=== PATIENT | male | born 1995 | race Caucasian/White ===

== ENCOUNTER 2022-04-24 18:48 | Emergency (ER) | payer OTHER, SELFPAY ==
[2022-04-24 18:49] VITALS: BP 146/95; PULSE 112; RESP 16; TEMP 37.4; O2SAT 100; BMI 25.8
--- NOTE | 2022-04-24 20:30 | US_ITS ---
EXAM: US SCROTUM CLINICAL INDICATION: pain and swelling lt testicle TECHNIQUE: Realtime ultrasound of the testicles was performed with grayscale and Color Doppler analysis. This report was created using [employer] report Flu[employer] technology. COMPARISON: None. FINDINGS: RIGHT TESTICLE: Right testicle measures 3.0 x 4.5 x 1.9 cm. Normal in size and echotexture. No focal lesion. Normal blood flow is present. LEFT TESTICLE: The left testicle measures 3.1 x 4.7 x 2.5 cm. There is mild increased blood flow in the left testicle compared to the right. There is mild scrotal wall thickening on the left. Normal in size and echotexture. No focal lesion. Normal blood flow is present. EPIDIDYMIDES: The right epididymal head measures 1.1 x 0.9 x 0.8 cm. There is a 2 x 3 mm right epididymal cyst. The left epididymal head measures 1.3 x 1.0 x 0.9 cm. There is a 3 x 3 mm left epididymal cyst. Normal color Doppler flow pattern in the epididymis. SCROTUM: There is a moderate left-sided hydrocele. No varicocele. US/Testicular with Arterial Flow IMPRESSION: Mild increased blood flow in the left testicle compared to the right which may represent orchitis. There is a left-sided hydrocele present. There is no evidence of torsion. Electronically Signed: Timbo Leonardo MD at 22:05 EDT ,
--- NOTE | 2022-04-24 20:35 | EDS_ITS ---
HPI History of Present Illness Chief Complaint: Male Pain/Injury Informant: patient Narrative Narrative: Patient woke up with some left testicular swelling yesterday. Its continued. It is a little bit sore but not notably painful. No nausea vomiting. No change in urination or discharge. No trauma or injury. No fevers chills. No joint pains. No rashes. Nothing really makes better. Pressing on the area does make it a little worse. PFSH PFSH Home Medications doxycycline monohydrate 100 mg capsule 100 mg PO BID #20 caps 04/24/22 [Rx Last Taken Unknown] Allergy/AdvReac Type Severity Reaction Status Date / Time No Known Allergies Allergy Verified 04/24/22 18:50 Social History Smoking Status: Never smoker ROS ROS ED Constitutional Constitutional ED: Denies chills or fever(s) Respiratory/Chest Respiratory/Chest: Denies cough or dyspnea Gastrointestinal Gastrointestinal: Denies abdominal pain, constipation, diarrhea, melena, nausea or vomiting Genitourinary Genitourinary ED: Reports other Details: See history of present illness peer ; Denies dysuria, hematuria or urinary frequency Musculoskeletal Musculoskeletal: Denies arthralgias, back pain or myalgias Integumentary Denies rash Neurologic Neurologic: Denies paresthesias or weakness Endocrine Endocrinology: Denies polyuria Hematologic/Lymphatic Hematologic/Lymphatic: Denies lymphadenopathy Allergic/Immunologic Allergic/Immunologic ED: Denies urticaria EXAM Physical Exam Const Vital Signs: 04/24/22 18:49 Temperature 99.3 F H Temperature Source Temporal Pulse Rate 112 H Respiratory Rate 16 Blood Pressure 146/95 H Blood Pressure Mean 112 Pulse Ox 100 Oxygen Delivery Method Room Air Positive well nourished and well developed General Appearance ED: well developed; Negative for pallor HEENT Reports moist mucous membranes Eyes Eyes Narrative: No conjunctival injection General Eye ED: Negative for scleral icterus Resp normal respiratory effort Cardio regular rate and regular rhythm GI non-tender, non-distended and no masses Palpation: soft no CVA tenderness Narrative: Patient does have a slightly enlarged left testicle compared to right. But it seems to be more epididymal enlargement. There is no inguinal lymphadenopathy. No lesions or sores. No discharge. Cremasteric reflex is still intact and normal. Back/Spine no CVA tenderness Extremity normal to inspection Neuro Sensorium / Orientation: alert Psych mental status grossly normal Skin General Skin Exam: Negative for jaundice or pallor MDM MDM MDM Narrative Medical decision making narrative: Patient's urinalysis showed a few red cells but overall normal. Ultrasound was consistent with orchitis. Patient will use supportive underwear, ice rest. I will send off GC and chlamydia although I do not think this is likely the cause. He has no discharge or adenopathy. I will treat him with doxycycline. If he is not improving he will follow-up with urology. Lab Data Attestation: I reviewed the patient's lab results. Labs: Laboratory Results - last 24 hr 04/24/22 20:50 Urine Color Yellow Urine Clarity Clear Urine pH 6.5 Ur Specific [place] 1.020 Urine Protein 15 H Urine Glucose (UA) Normal Urine Ketones 15 H Urine Occult Blood Negative Urine Nitrite Negative Urine Bilirubin Negative Urine Urobilinogen 1 H Ur Leukocyte Esterase Negative Urine RBC 5-10 SEEN Urine WBC 0 SEEN Ur Squamous Epith Cells 0-5 SEEN Urine Bacteria RARE Urine Mucus 0 SEEN Radiography Diagnostic Testing: Clinical Impression(s) from Imaging Studies Testicular Ultrasound 04/24/22 20:30 IMPRESSION: Mild increased blood flow in the left testicle compared to the right which may represent orchitis. There is a left-sided hydrocele present. There is no evidence of torsion. Electronically Signed: Timbo Leonardo MD at 22:05 EDT , Ultrasound read by radiology shows increased blood flow to the left testicle more consistent with orchitis. There is no evidence of torsion. Discharge Plan Triage Chief Complaint: Male Pain/Injury ED Provider: Mina Bravo Dx/Rx/DC Orders Clinical Impression: Orchitis, left Instructions: ED Orchitis Prescriptions: New doxycycline monohydrate 100 mg capsule 100 mg PO BID Qty: 20 0RF Primary Care Provider: Eleno Bridges Referrals: Sin Tillman MD [Med Staff - Active Staff] - 1 Week if not improving Eleno Bridges MD [Primary Care Provider] - Disposition Disposition: Home, Self Care
[2022-04-24 20:59] LABS: Mucous, Urine 0 SEEN /hpf (<or=2+); White Blood Cells 0 SEEN /hpf (0-5)
[2022-04-24 21:13] LABS: Color, Urine Yellow (Yellow); Glucose, Dipstick Normal (Normal); Ketone-Dipstick 15 mg/dl (Negative); Leukocyte Esterase-Dipstick Negative /ul (Negative); Nitrite-Dipstick Negative (Negative); Occult Blood-Urine Negative /ul (Negative); Protein-Dipstick 15 mg/dl (Negative); Urine Bilirubin Dipstick Negative (Negative); Urine Clarity Clear (Clear); Urine Urobilinogen 1 mg/dl (Normal); Urine pH 6.5 (5.0 - 8.0)
[2022-04-24 21:48] LABS: Bacteria RARE /hpf (None Seen); Red Blood Cells-Urine 5-10 SEEN /hpf (0-5); Squamous Epithelial Cells - UA 0-5 SEEN /hpf (0-5)
[2022-04-24] MEDS: Doxycycline 100 MG CAPSULE PO (22:35)
[2022-04-27 03:07] LABS: Chlamydia By Nucleic Acid AMP Negative (Negative)
[2022-04-27 17:37] LABS: Gonococcus By Nucleic Acid AMP Negative (Negative)
== END 2022-04-24 22:36 | disposition home or self-care (01) ==
PROVIDERS: Emergency Provider Emergency Medicine; PCP Family Medicine; Visit Provider Emergency Medicine
DX: N45.2 Orchitis (principal)
CPT/HCPCS: 76870; 81001; 87491; 87591; 93976; 99283